=== PATIENT | male | born 1990 | race Two or more races ===

== ENCOUNTER 2019-11-17 17:00 | Outpatient (RCR) | payer OTHER | END 2019-11-19 | LOC: PT 17:00 | PROVIDERS: ATTEND Internal Medicine | DX: M54.5 Low back pain (principal); M62.81 Muscle weakness (generalized); M53.86 Other specified dorsopathies, lumbar region ==

== ENCOUNTER 2019-12-18 17:00 | Outpatient (RCR) | payer OTHER | END 2019-12-20 | LOC: PT 17:00 | PROVIDERS: ATTEND Internal Medicine | DX: M54.5 Low back pain (principal); M62.81 Muscle weakness (generalized); M53.86 Other specified dorsopathies, lumbar region ==

== ENCOUNTER 2020-01-07 17:00 | Outpatient (RCR) | payer OTHER | END 2020-01-19 | LOC: PT 17:00 | PROVIDERS: ATTEND Internal Medicine | DX: M54.5 Low back pain (principal); M62.81 Muscle weakness (generalized); M53.86 Other specified dorsopathies, lumbar region | CPT/HCPCS: 97139 ==

== ENCOUNTER 2020-02-05 17:00 | Outpatient (RCR) | payer OTHER | END 2020-02-19 | LOC: PT 17:00 | PROVIDERS: ATTEND Internal Medicine | DX: M54.5 Low back pain (principal); M53.86 Other specified dorsopathies, lumbar region; M62.81 Muscle weakness (generalized) ==